=== PATIENT | female | born 1955 | race Caucasian/White ===

== ENCOUNTER → 2020-06-14 21:32 | Outpatient (CLI) | payer MEDICARE | END | disposition home or self-care (01) | LOC: D.LABREF 21:32 | PROVIDERS: ATTEND Orthopaedic Surgery | DX: M17.11 Unilateral primary osteoarthritis, right knee (principal) ==

== ENCOUNTER 2020-08-04 08:00 | Outpatient (CLI) | payer MEDICARE, BC ==
[2020-08-04] MEDS ORDERED: LEVOTHYROXINE50 MCG PO (13:10)
[2020-08-04] MEDS ORDERED: LISINOPRIL-HCT1 EAC4 PO (13:10)
[2020-08-10 11:49] VITALS: BMI 42.2
== END 2020-08-04 08:01 | disposition home or self-care (01) ==
LOC: D.OPS 08:00
PROVIDERS: ATTEND Orthopaedic Surgery
DX: M17.11 Unilateral primary osteoarthritis, right knee (principal)

== ENCOUNTER 2020-08-10 06:00 | Observation (INO) | payer MEDICARE, BC ==
[2020-08-04 13:07] LABS: ANION GAP 11.1 mmol/L (8-16); CALCIUM 9.3 mg/dL (8.5-10.1); CARBON DIOXIDE 27.2 mmol/L (21.0-32.0); CREATININE - SERUM 1.3 mg/dL (0.6-1.3); POTASSIUM - SERUM 4.3 mmol/L (3.5-5.1)
[2020-08-04 13:15] LABS: BASOPHILS 0.8 % (0-2); BILIRUBIN NEGATIVE (NEGATIVE); EOSINOPHILS 4.8 % (0-7); HEMATOCRIT 46.2 % (36.0-48.0); HEMOGLOBIN 15.3 g/dL (12-16); KETONE NEGATIVE (NEGATIVE); LYMPHOCYTES 25.6 % (15-50); MCH 28.8 pg (26.0-34.0); MCHC 33.2 g/dL (31.0-37.0); MCV 86.7 fL (80.0-100.0); MEAN PLATELET VOLUME 7.5 fL (7.4-10.4); MONOCYTES 7.1 % (2-11); NEUTROPHILS 61.7 % (40-80); NITRITE NEGATIVE (NEGATIVE); PLATELET COUNT 353 10x3/uL (130-400); RBC 5.34 10x6/uL (4.00-5.40); RDW 14.3 % (11.5-14.5); UROBILINOGEN NORMAL mg/dL (< 2); WBC 10.3 10x3/uL (4.8-10.8)
[2020-08-04 13:36] LABS: APTT 29.3 SECONDS (22.8-39.4); INR 1.11 (0.85-1.17); PROTIME 13.2 SECONDS (11.6-15.0)
[~2020-08-10] VITALS: Ht 160 cm; Wt 108.2 kg
[~2020-08-10 06:00] MED LIST: LEVOTHYROXINE50 MCG PO; LISINOPRIL-HCT1 EAC4 PO
[2020-08-10 07:31] VITALS: BP 124/76; BMI 42.6
--- NOTE | 2020-08-10 09:56 | NUR ---
RIGHT LEG CLEANSED WITH ALCOHOL AND HIBECLENS FROM THIGH TO TOES CIRCUMFERENTIALLY PRIOR TO PREP. PREPPED WITH CHLORAPREP X2 FROM THIGH TO TOES CIRCUMFERENTIALLY. RN IN STERILE ATTIRE TO PREP. GROUNDING PAD RIGHT FLANK LOT#[id number] EXP 02/01/2022 PLASMA BLADE SET TO 6/8 TRAFFIC KEPT TO MINIMUM
[2020-08-10 10:59] VITALS: BP 119/59
[2020-08-10 11:49] VITALS: BP 105/58; Ht 160 cm; Wt 108.2 kg
--- NOTE | 2020-08-10 16:00 | NUR ---
UNABLE TO PUT VS IN COMPUTER BC VS WAS TAKEN OFF OF PATIENT AND HAVE NO IDEA WHERE IT WAS MOVED TO. WHILE PATIENT WAS ON VS MACHINE, HER VS WERE STABLE WITH NO PROBLEMS. PATIENT HAS NO COMPLAINTS OR SIGNS OF DISTRESS. IV INTACT. CALL LIGHT WITHIN REACH.
--- NOTE | 2020-08-10 16:46 | MORECARE ---
CASE MANAGEMENT DISCHARGE SUMMARY PATIENT: RAYNA THOMPSON UNIT: [id number] ADM DATE: 08/10/20 AGE: 64 : 53 SEX: F ROOM/BED: D.2229 AUTHOR: KY,DOC PHYSICIAN: REFERRING PHYSICIAN: ALTAGRACIA COSBY DO DATE OF SERVICE: 08/10/20 Case Management Discharge Planning Summary COMMENTS ENTERED DATE: 08/10/20 16:42 CT COMMENT TYPE: Discharge Planning REVIEWER: Kathryn Pate CM met with patient at bedside after obtaining verbal consent. CM discussed availability / needs of home health, REHAB and medical equipment. Patient states medical equipment has been delivered to her home. No other equipment needed. She [place] [address] I will find this information and get her set up for an appointment day after discharge. She anticipates dc tomorrow. CM to follow and assist as needed. DCP REVIEW SUMMARY ANTICIPATED D/C DATE: EXPECTED LOS : CASE STATUS: DCP Initiated INITIAL REVIEW: 08/10/2020 INITIAL REVIEWER: Kathryn Pate FINAL DISCHARGE DISPOSITION: : FINAL REVIEWER: FINAL REVIEW DATE: DCP Focus Questions & Answers QUESTION: ANSWER : PATIENT: RAYNA THOMPSON ENCOUNTER: [id number] MEDICAL RECORD#: [id number] ADMISSION DATE: 08/10/2020 DISCHARGE DATE: ATTENDING MD: ALTAGRACIA CLINE : AGE: 64 MARITAL STATUS: D DC PLAN ID: [id number] FACILITY: [facility] PRINTED ON: 08/10/20 16:46 CT All edits/amendments must be made on the electronic document DICTATION DATE: 08/10/201645 PASTE THINNER: STEPHANIE 08/10/201645 RPT#: [id number] DC DATE: STATUS: ADM IN [facility] [address] [place] [address] END OF REPORT
--- NOTE | 2020-08-10 16:57 | MORECARE ---
CASE MANAGEMENT DISCHARGE SUMMARY PATIENT: RAYNA THOMPSON UNIT: [id number] ADM DATE: 08/10/20 AGE: 64 : 51 SEX: F ROOM/BED: D.2229 AUTHOR: KY,DOC PHYSICIAN: REFERRING PHYSICIAN: ALTAGRACIA COSBY DO DATE OF SERVICE: 08/10/20 Case Management Discharge Planning Summary COMMENTS ENTERED DATE: 08/10/20 16:42 CT COMMENT TYPE: Discharge Planning REVIEWER: Kathryn Pate CM met with patient at bedside after obtaining verbal consent. CM discussed availability / needs of home health, REHAB and medical equipment. Patient states medical equipment has been delivered to her home. No other equipment needed. She would like out patient physical therapy [place] [address] I will find this information and get her set up for an appointment day after discharge. She anticipates dc tomorrow. CM to follow and assist as needed. DCP REVIEW SUMMARY ANTICIPATED D/C DATE: EXPECTED LOS : CASE STATUS: DCP Initiated INITIAL REVIEW: 08/10/2020 INITIAL REVIEWER: Kathryn Pate FINAL DISCHARGE DISPOSITION: : FINAL REVIEWER: FINAL REVIEW DATE: DCP Focus Questions & Answers QUESTION: ANSWER : PATIENT: RAYNA THOMPSON ENCOUNTER: [id number] MEDICAL RECORD#: [id number] ADMISSION DATE: 08/10/2020 DISCHARGE DATE: ATTENDING MD: ALTAGRACIA CLINE : AGE: 64 MARITAL STATUS: D DC PLAN ID: [id number] FACILITY: [facility] PRINTED ON: 08/10/20 16:57 CT All edits/amendments must be made on the electronic document DICTATION DATE: 08/10/201656 DECORATOR HAND: STEPHANIE 08/10/201656 RPT#: [id number] DC DATE: STATUS: ADM IN [facility] [address] [place] [address] END OF REPORT
[2020-08-10 20:00] VITALS: BP 91/49
[2020-08-11] VITALS: BP 98/58
[2020-08-11 03:50] VITALS: BP 98/51
--- NOTE | 2020-08-11 06:01 | OP ---
PATIENT NAME: RAYNA THOMPSON MEDICAL RECORD: [id number] :51 LOCATION:[address] [place].2229 ADMISSION DATE:08/10/20 SURGEON: JOE COSBY DO DATE OF OPERATION: 08/10/2020 PROCEDURE PERFORMED: Right total knee arthroplasty. PREOPERATIVE DIAGNOSIS: Right knee osteoarthritis. POSTOPERATIVE DIAGNOSIS: Right knee osteoarthritis. INDICATIONS: Ms. Thompson is a 64-year-old female who has had right knee pain for quite some time, severe medial joint line narrowing and it got to the point where it affected her activities of daily living. She is tired dealing with it and wanted something done surgically. I told her we could do a total knee and that she would be at risk for infection, bleeding, damage to nerves or vessels, fracture, need for further surgery, continued pain, loosening, failure of implants, blood clots and even , and she signed the consent. SURGEON: Joe Cosby DO DESCRIPTION OF PROCEDURE: The patient received block by anesthesia in the preoperative area and taken to the operative suite, laid in supine position, given general anesthetic, given 1.5 grams of vancomycin due to positive MRSA swab and a gram of TXA. She was sedated and LMA was placed. The right lower extremity was then prepped and draped in sterile fashion. Timeout was performed. Everyone was in agreement with the correct site, side, patient, and procedure. I then began by marking out the incision on the anterior knee and covered with Ioban. I then made an incision down with a 10-blade scalpel to the capsule, cleaned up the capsule, used a fresh 10 blade. Did medial parapatellar approach, coagulated any vessels with Aquamantys at this time. I then everted the patella, took part of the fat pad, everted and milled down the patella after measuring it. I then drilled for a 29 patella through the guide. I then flexed the knee up, removed the ACL, I drilled into the femoral canal. I then used a distal femur cutting guide intramedullary, pinned into place and cut the distal femur. I then removed that and exposed the proximal tibia and cut the proximal tibia through an extramedullary guide. I then removed that bone and the menisci and brought the knee in extension, removed the rest of the menisci and the 10 extension block fit very well. I then flexed the knee up, measured the femur to be 7. I used a 4-in-1 cutting block after using the brando wing to ensure there is no notching and cut the femur through the 4-in-1 cutting block. I then exposed the tibia, sized it to be a D and put the D tibial tray in, impacted it, pinned it into place and then put the 7 trial femur on and put a 10 poly in between it. It moved very well, had good stability in varus and valgus stress and flexion, mid flexion and extension. I then drilled the lug holes, removed the femoral trial as well as the poly trial and reamed and punched the tibia and put extra holes in the tibia for the cement. Mixed the cement, irrigated out the tibia and put cement in the tibia and on the implant, impacted into place, removed the excess cement, impacted on the femur, put the trial poly in between and brought the knee in extension, removed the excess cement then, I then irrigated out the patella and curetted out the holes, put cement in the holes of the patella and on the patellar implant and squeezed into place. Removed the excess cement. I then put in 10% povidone-iodine and 500 mL of normal saline solution and let it sit for 3 minutes. While that was sitting, I injected around the periosteum and about the capsule of the knee with joint cocktail and OPERATIVE REPORT [id number] RAYNA THOMPSON then irrigated out thoroughly. Once the cement had dried, I trialed the 10, seemed to fit very well and then removed the trial poly, put in the actual poly and then had to remove a piece of cement in the posterior tray of the tibia, I removed that and then put the poly and locked it into place. I then ranged the knee, it fit very well and had good stability in varus and valgus stress, in flexion, mid flexion and extension. I then put in Augustine and vancomycin and tobramycin powder, closed the capsule with #1 Vicryl in a [id number] fashion. Kevin Landon, certified research study assistant, then closed the rest of the capsule with a Stratafix running stitch and then the skin with 2-0 Vicryl in inverted interrupted fashion. I then put on a ZipLine and dressed with Adaptic, 4 x 4, ABD, Webril, [place] wrap and KATHY hose stocking up to knee. She was then awakened and taken to recovery in stable condition. Blood loss was approximately 200 mL. COMPLICATIONS: None. TRANSINT:[id number] Voice Confirmation ID: [id number] DOCUMENT ID: [id number] JOE COSBY DO at 0601 CC: [id number] DICTATION DATE: 08/10/20 1004 AUTOMOTIVE TIRE TESTING SUPERVISOR: 08/10/20 2104 ADM IN [place] [id number] [place] [id number]
[2020-08-11 06:24] LABS: BASOPHILS 0.1 % (0-2); EOSINOPHILS 0.1 % (0-7); HEMATOCRIT 38.3 % (36.0-48.0); HEMOGLOBIN 12.6 g/dL (12-16); LYMPHOCYTES 7.9 % (15-50); MCH 28.5 pg (26.0-34.0); MCHC 32.9 g/dL (31.0-37.0); MCV 86.6 fL (80.0-100.0); MONOCYTES 7.4 % (2-11); NEUTROPHILS 84.5 % (40-80); PLATELET COUNT 335 10x3/uL (130-400); RBC 4.42 10x6/uL (4.00-5.40); RDW 13.9 % (11.5-14.5); WBC 19.3 10x3/uL (4.8-10.8)
--- NOTE | 2020-08-11 06:30 | NUR ---
I have reviewed this patient and I concur with the Shift Assessment completed by the Licensed Practical Nurse today this shift.
[2020-08-11 07:00] LABS: ALBUMIN 3.1 g/dL (3.4-5.0); ANION GAP 17.7 mmol/L (8-16); BILIRUBIN - TOTAL 0.24 mg/dL (0.2-1.3); CALCIUM 8.2 mg/dL (8.5-10.1); CARBON DIOXIDE 21.8 mmol/L (21.0-32.0); CREATININE - SERUM 1.7 mg/dL (0.6-1.3); POTASSIUM - SERUM 4.5 mmol/L (3.5-5.1); PROTEIN - SERUM 6.2 g/dL (6.4-8.2)
--- NOTE | 2020-08-11 07:40 | NUR ---
AWAKE AND AELRT. ORIENTED X3. NO C/O AT THIS TIME. LUNGS ARE CLEAR BILATERALLY, NO COUGH NOTED. SKIN IS INTACT WITHOUT REDNESS EXCEPT INCISION TO RIGHT KNEE WHICH HAS A DRY INTACT DRESSING IN PLACE. IV TO LEFT FOREARM IS PATENT IWTHOUT REDNESS AT INSERTION SITE. DENIES NEEDS. CPM IN PLACE. SCD'S AND KATHY'S IN PLACE.
[2020-08-11 08:57] VITALS: BP 103/55
--- NOTE | 2020-08-11 09:26 | NUR ---
ATE MOST OF BREAKFAST. REQUESTED AND GIVEN ONE PERCOCET PO FOR C/O PAIN LEVEL 4. WILL MONITOR. TOOK AM MEDS WITHOUT DIFFICULTY.
[2020-08-11 12:22] VITALS: BP 113/64
--- NOTE | 2020-08-11 13:17 | NUR ---
ATE MOST OF LUNCH. REQUESTED AND GIVEN ONE PERCOCET PO FOR C/O RIGHT KNEE PAIN LEVEL 6. WILL MONITOR.
[2020-08-11] MEDS ORDERED: ELIQUIS2.5 MG PO (13:58)
[2020-08-11] MEDS ORDERED: PERCOCET 10-321 EAC1 PO ×2 (13:58→15:15)
[2020-08-11] MEDS ORDERED: VISTARIL50 MG PO (13:59)
--- NOTE | 2020-08-11 17:23 | NUR ---
DISCHARGED TO HOME WITH FAMILY AMBULATORY. DISCHARGE INSTRUCTIONS GIVEN BOTH VERBALLY AND WRITTEN. ALL QUESTIONS ANSWERED. PATIENT AND FAMILY VERBALIZED UNDERSTANDING OF SAME. IV TO LEFT FOREARM D/C WITH CATHETER INTACT. NEEDED PRESCRIPTIONS GIVEN TO PATIENT AND ESCRIBED TO PHARMACY OF CHOICE. ALL BELONGINGS WITH PATIENT.
--- NOTE | 2020-08-11 17:29 | MORECARE ---
CASE MANAGEMENT DISCHARGE SUMMARY PATIENT: RAYNA THOMPSON UNIT: [id number] ADM DATE: 08/10/20 AGE: 64 : 53 SEX: F ROOM/BED: D.2229 AUTHOR: KY,DOC PHYSICIAN: REFERRING PHYSICIAN: ALTAGRACIA COSBY DO DATE OF SERVICE: 08/11/20 Case Management Discharge Planning Summary COMMENTS ENTERED DATE: 08/10/20 16:42 CT COMMENT TYPE: Discharge Planning REVIEWER: Kathryn Pate CM met with patient at bedside after obtaining verbal consent. CM discussed availability / needs of home health, REHAB and medical equipment. Patient states medical equipment has been delivered to her home. No other equipment needed. She would like out patient physical therapy [place] [address] I will find this information and get her set up for an appointment day after discharge. She anticipates dc tomorrow. CM to follow and assist as needed. DCP REVIEW SUMMARY ANTICIPATED D/C DATE: EXPECTED LOS : CASE STATUS: DCP Initiated INITIAL REVIEW: 08/10/2020 INITIAL REVIEWER: Kathryn Pate FINAL DISCHARGE DISPOSITION: : FINAL REVIEWER: FINAL REVIEW DATE: DCP Focus Questions & Answers QUESTION: ANSWER : PATIENT: RAYNA THOMPSON ENCOUNTER: [id number] MEDICAL RECORD#: [id number] ADMISSION DATE: 08/10/2020 DISCHARGE DATE: 08/11/2020 ATTENDING MD: ALTAGRACIA CLINE : AGE: 64 MARITAL STATUS: D DC PLAN ID: [id number] FACILITY: [facility] PRINTED ON: 08/11/20 17:29 CT All edits/amendments must be made on the electronic document DICTATION DATE: 08/11/201728 TURKEY FARMER: DM 08/11/201728 RPT#: [id number] DC DATE:08/11/20 STATUS: DIS IN [facility] [address] [place] [address] END OF REPORT
--- NOTE | 2020-08-12 10:40 | MORECARE ---
CASE MANAGEMENT DISCHARGE SUMMARY PATIENT: RAYNA THOMPSON UNIT: [id number] ADM DATE: 08/10/20 AGE: 64 : 51 SEX: F ROOM/BED: D.2229 AUTHOR: KY,DOC PHYSICIAN: REFERRING PHYSICIAN: ALTAGRACIA COSBY DO DATE OF SERVICE: 08/12/20 Case Management Discharge Planning Summary COMMENTS ENTERED DATE: 08/10/20 16:42 CT COMMENT TYPE: Discharge Planning REVIEWER: Kathryn Pate CM met with patient at bedside after obtaining verbal consent. CM discussed availability / needs of home health, REHAB and medical equipment. Patient states medical equipment has been delivered to her home. No other equipment needed. She would like out patient physical therapy [place] [address] I will find this information and get her set up for an appointment day after discharge. She anticipates dc tomorrow. CM to follow and assist as needed. DCP REVIEW SUMMARY ANTICIPATED D/C DATE: EXPECTED LOS : CASE STATUS: DCP Initiated INITIAL REVIEW: 08/10/2020 INITIAL REVIEWER: Kathryn Pate FINAL DISCHARGE DISPOSITION: : FINAL REVIEWER: FINAL REVIEW DATE: DCP Focus Questions & Answers QUESTION: ANSWER : PATIENT: RAYNA THOMPSON ENCOUNTER: [id number] MEDICAL RECORD#: [id number] ADMISSION DATE: 08/10/2020 DISCHARGE DATE: 08/11/2020 ATTENDING MD: ALTAGRACIA CLINE : AGE: 64 MARITAL STATUS: D DC PLAN ID: [id number] FACILITY: [facility] PRINTED ON: 08/12/20 10:40 CT All edits/amendments must be made on the electronic document DICTATION DATE: 08/12/20 1040 DRAG SAWYER: DM 08/12/20 1040 RPT#: [id number] DC DATE:08/11/20 STATUS: DIS IN [facility] [address] [place] [address] END OF REPORT
== END 2020-08-11 17:26 | disposition home or self-care (01) ==
LOC: D.OPS → D.MS 10:21 → D.OPS 13:22 → D.MS 13:22 → OBSVTIME 13:23 → D.MS 08-11 17:26
PROVIDERS: Emergency Medicine; ADMIT Orthopaedic Surgery; ATTEND Orthopaedic Surgery
DX: M17.11 Unilateral primary osteoarthritis, right knee (principal); E03.9 Hypothyroidism, unspecified; I10 Essential (primary) hypertension